=== PATIENT | male | born 1940 | race Asian ===

== ENCOUNTER 2022-01-09 19:15 | Inpatient (IN) | payer MEDICAID ==
[~2022-01-09] VITALS: Ht 152.4 cm; Wt 66.7 kg
--- NOTE | 2022-01-09 19:35 | NUR ---
[place] SPECIALIST NOTES: PT DIRECT ADMIT FROM [facility] VIA GURNEY, PLACED IN ROOM 108 BED1. PT AWAKE, ALERT/ORIENTED X4 AND VERBALLY RESPONSIVE. BREATHING EVEN AND UNLABORED. ON ROOM AIR AND PT TOLERATED WELL. O2 SAT 97%. IV ACCESS ON RAC #22G INTACT AND PATENT. NO S/S OF INFILTRATIONS. BODY ASSESSMENT DONE. NO OPEN SKIN OR SKIN DISCOLORATIONS. NO C/O PAIN OR DISCOMFORT. NO ACUTE DISTRESS. ABLE TO USE BATHROOM WITH ASSIST. COOPERATIVE. ALL SAFETY MEASURES IN PLACE. SIDE RAILS UP X2, BED IN LOWEST POSITION AND LOCKED. PLACE CALL LIGHT WITH IN REACH. WILL CONTINUE TO MONITOR
[2022-01-09 20:00] VITALS: BP 156/90
[2022-01-09] MEDS ORDERED: MAG HYDROX/AL HYDROX/SIMETH 30 ML UDC PO PRN (20:30)
[2022-01-09] MEDS ORDERED: ZOLPIDEM TARTRATE 5 MG TABLET PO PRN (20:30)
[2022-01-09] MEDS ORDERED: MAGNESIUM HYDROXIDE 30 ML UDC PO PRN (20:30)
[2022-01-09] MEDS ORDERED: ACETAMINOPHEN 325 MG TABLET PO PRN (20:30)
[2022-01-09] MEDS ORDERED: MORPHINE SULFATE INJ 2 MG/ML DISP.SYRIN IV PRN (20:30)
[2022-01-09] MEDS ORDERED: ONDANSETRON HCL/PF 4 MG/2 ML VIAL IVP PRN (20:30)
[2022-01-09] MEDS ORDERED: Z GUARD REMEDY 4 OZ OINT TP PRN (20:30)
[2022-01-09] MEDS ORDERED: WARF3TAB59 PO ×2 (21:07)
[2022-01-09] MEDS ORDERED: METO50TA16 PO (21:07)
[2022-01-09] MEDS ORDERED: SIMV-46 PO (21:07)
[2022-01-09] MEDS ORDERED: ACET-73 PO (21:14)
[2022-01-09] MEDS ORDERED: FINA5TAB3 PO (21:14)
[2022-01-09] MEDS ORDERED: AMLO-212 PO (21:14)
[2022-01-09] MEDS ORDERED: TERA2CAP4 PO (21:14)
[2022-01-09] MEDS: IV NS 0.9% 1,000 ML IV PRN (22:59)
[2022-01-09] MEDS ORDERED: ACETAMINOPHEN ES 500 MG TABLET PO PRN (23:00)
[2022-01-10] VITALS: BP 116/66
[2022-01-10] MEDS ORDERED: PIPERACILLIN /TAZOBACTAM 3.375 G VIAL IV ONE (01:59)
[2022-01-10] MEDS ORDERED: INSULIN REGULAR, HUMAN 100 UNIT/ML 3 ML VIAL SQ PRN (02:00)
[2022-01-10] MEDS ORDERED: DEXTROSE 50%-WATER 50 ML DISP.SYRIN IV PRN (02:00)
[2022-01-10] MEDS: PIPERACILLIN /TAZOBACTAM 3.375 G in IV D5W 50 ML IV SCH ×2 (02:11→08:15)
[2022-01-10 04:00] VITALS: BP 126/79
[2022-01-10] MEDS ORDERED: PIPERACILLIN /TAZOBACTAM 3.375 G in IV D5W 50 ML IV SCH (06:00)
--- NOTE | 2022-01-10 06:22 | NUR ---
RN CLOSING NOTES: PT IN BED SLEEPING BUT EASILY AROUSABLE, AWAKE, ALERT/ORIENTED X4 AND VERBALLY RESPONSIVE. BREATHING EVEN AND UNLABORED. ON ROOM AIR AND PT TOLERATED WELL. O2 SAT 98%. IV ACCESS ON RAC #22G INTACT AND PATENT. NO S/S OF INFILTRATIONS. NO C/O PAIN OR DISCOMFORT. NO ACUTE DISTRESS. ABLE TO USE BATHROOM WITH ASSIST. ABLE TO MAKE NEEDS. DUE MED GIVEN ORDERED. ALL SAFETY MEASURES IN PLACE. SIDE RAILS UP X2, BED IN LOWEST POSITION AND LOCKED. PLACE CALL LIGHT WITH IN REACH. WILL ENDORSE TO MORNING SHIFT NURSE.
[2022-01-10 06:41] LABS: BASOPHILS % (AUTO) 0.4 % (0.0-2.0); EOSINOPHILS % (AUTO) 1.5 % (0.0-6.0); HEMATOCRIT 42 % (39-51); HEMOGLOBIN 14.1 g/dL (13.5-17.5); LYMPHOCYTES # (AUTO) 1.2 K/uL (0.8-4.8); LYMPHOCYTES % (AUTO) 9.8 % (20.0-44.0); MEAN CORPUSCULAR HGB CONC 34 g/dl (31.0-36.0); MEAN CORPUSCULAR VOLUME 97 fL (80-96); MONOCYTES # (AUTO) 1.4 K/uL (0.1-1.30); MONOCYTES % (AUTO) 11.2 % (2.0-12.0); NEUTROPHILS # (AUTO) 9.6 K/uL (1.8-8.9); NEUTROPHILS % (AUTO) 77.1 % (43.0-81.0); PLATELET COUNT (AUTO) 138 K/uL (150-450); RED BLOOD CELL COUNT(AUTO) 4.33 MIL/uL (4.5-6.0); WHITE BLOOD COUNT (AUTO) 12.5 K/uL (4.3-11.0)
--- NOTE | 2022-01-10 07:15 | NUR ---
RN OPENING NOTE RECEIVED PT IN BED AWAKE, ALERT/ORIENTED X4 AND VERBALLY RESPONSIVE. BREATHING EVEN AND UNLABORED. ON ROOM AIR AND PT TOLERATED WELL. O2 SAT 98%. IV ACCESS ON RAC #22G INTACT AND PATENT. NO S/S OF INFILTRATIONS. NO C/O PAIN OR DISCOMFORT. NO ACUTE DISTRESS. ABLE TO MAKE NEEDS KNOWN. ABLE TO USE BATHROOM WITH ASSIST. ALL SAFETY MEASURES IN PLACE. SIDE RAILS UP X2, BED IN LOWEST POSITION AND LOCKED. PLACE CALL LIGHT WITH IN REACH. WILL CONTINUE TO MONITOR THROUGHOUT SHIFT
[2022-01-10] MEDS: BLOOD SUGAR DIAGNOSTIC 1 EACH STRIP IN SCH ×4 (07:34→22:04)
[2022-01-10 08:00] VITALS: BP 136/86
[2022-01-10 08:30] LABS: BILIRUBIN,TOTAL 2.1 mg/dL (0.2-1.0); CALCIUM, SERUM 8.1 mg/dL (8.5-10.1); CREATININE 1.1 mg/dL (0.6-1.3); MAGNESIUM 2.1 mg/dL (1.8-2.4); PHOSPHORUS 2.7 mg/dL (2.5-4.9); POTASSIUM 3.8 mmol/L (3.5-5.1); TOTAL PROTEIN, SERUM 6.6 g/dL (6.4-8.2)
[2022-01-10] MEDS: AMLODIPINE BESYLATE 5 MG TABLET PO SCH (09:51)
[2022-01-10] MEDS: METOPROLOL TARTRATE 50 MG TABLET PO SCH ×2 (09:51→16:15)
[2022-01-10] MEDS: PANTOPRAZOLE 40 MG VIAL IV SCH (09:51)
[2022-01-10] MEDS: TERAZOSIN HCL 5 MG CAPSULE PO SCH ×2 (09:52→21:35)
[2022-01-10] MEDS: IV NS 0.9% 1,000 ML IV PRN (10:16)
[2022-01-10 12:00] VITALS: BP 115/72
[2022-01-10] MEDS: PIPERACILLIN /TAZOBACTAM 3.375 G in IV D5W 100 ML IV SCH ×2 (12:55→21:40)
[2022-01-10 16:00] VITALS: BP 111/66
[2022-01-10] MEDS: WARFARIN SODIUM 1 MG TABLET PO SCH (16:24)
[2022-01-10] MEDS: SIMVASTATIN 20 MG TABLET PO SCH (17:04)
--- NOTE | 2022-01-10 19:02 | NUR ---
RN CLOSING NOTE PT REMAINS IN BED AWAKE, ALERT/ORIENTED X4 AND VERBALLY RESPONSIVE. BREATHING EVEN AND UNLABORED. ON ROOM AIR AND PT TOLERATED WELL WITH O2 SAT 99%. IV ACCESS ON RAC #22G INTACT AND PATENT. NO S/S OF INFILTRATIONS. NO C/O PAIN OR DISCOMFORT. NO ACUTE DISTRESS. ABLE TO MAKE NEEDS KNOWN. ABLE TO USE BATHROOM WITH ASSIST. ALL SAFETY MEASURES IN PLACE. SIDE RAILS UP X2, BED IN LOWEST POSITION AND LOCKED. PLACE CALL LIGHT WITH IN REACH. WILL ENDORSE CONTINUITY OF CARE TO PARENT COACH
[2022-01-10 20:00] VITALS: BP 110/63
--- NOTE | 2022-01-10 20:00 | NUR ---
CUT OFF TENDER GLASS OPENING NOTE RECEIVED PT IN BED AWAKE A/O X4 AMBULATORY AND VERBALLY RESPONSIVE.ON R/A SATING 98% ON TELE MONITOR HR 80- AFIB CONTROLLED BREATHING EVEN AND UNLABORED. V/S STABLE AFEBRILE . IV ACCESS ON RAC #22G INTACT AND PATENT. NO S/S OF INFILTRATIONS. IVF OF NS AT 90CC/HR INFUSING WELL .ALL DUE MEDS GIVEN ORDERED INCLUDING IV ATB NO ASE NOTED.. NO C/O PAIN OR DISCOMFORT. . ALL SAFETY MEASURES IN PLACE. SIDE RAILS UP X2, BED IN LOWEST POSITION AND LOCKED. PLACE CALL LIGHT WITH IN REACH. WILL CONTINUE TO MONITOR PTS.
[2022-01-10 20:33] LABS: CHOLESTEROL 121 mg/dL (<200); HDL CHOLESTEROL 57 mg/dL (40-60); LDL 60 mg/dL (0-99); TRIGLYCERIDES 77 mg/dL (30-150)
[2022-01-10] MEDS: FINASTERIDE (5 MG) 5 MG TABLET PO SCH (21:35)
--- NOTE | 2022-01-10 22:16 | NUR ---
telephone services sales representative notes Blood sugar at 10pm is 99mg/dl no insulin coverage given per sliding scale
[2022-01-11] VITALS: BP 118/72
[2022-01-11] MEDS: IV NS 0.9% 1,000 ML IV PRN ×2 (01:54→12:16)
[2022-01-11 04:00] VITALS: BP 119/81
[2022-01-11] MEDS: PIPERACILLIN /TAZOBACTAM 3.375 G in IV D5W 100 ML IV SCH ×3 (04:01→20:56)
--- NOTE | 2022-01-11 05:37 | NUR ---
telecommunications sales representative closing note Pts remain in bed awake continue on ivf ns at 90cc/hr infusing well no sob no distress noted due meds zosyn given with no adverse side effect noted , will endorse pts to day shift rn for continuity of care.
--- NOTE | 2022-01-11 07:20 | NUR ---
LAB AID OPENING NOTE RECEIVED PT IN BED AWAKE A/O X4 AMBULATORY AND VERBALLY RESPONSIVE.ON R/A SATING 97% ON TELE MONITOR WITH CONTROLLED A FIB HR OF 95. BREATHING EVEN AND UNLABORED. V/S STABLE AFEBRILE . IV ACCESS ON RAC #22G INTACT AND PATENT. NO S/S OF INFILTRATIONS. IVF OF NS AT 90CC/HR. NO C/O PAIN OR DISCOMFORT AT THIS TIME. ALL SAFETY MEASURES IN PLACE. SIDE RAILS UP X2, BED IN LOWEST POSITION AND LOCKED. CALL LIGHT WITH IN REACH. WILL CONTINUE TO MONITOR PT THROUGHOUT SHIFT.
[2022-01-11] MEDS: BLOOD SUGAR DIAGNOSTIC 1 EACH STRIP IN SCH ×4 (07:55→21:23)
[2022-01-11 08:00] VITALS: BP 145/90
[2022-01-11] MEDS: TERAZOSIN HCL 5 MG CAPSULE PO SCH ×2 (09:23→21:00)
[2022-01-11] MEDS: AMLODIPINE BESYLATE 5 MG TABLET PO SCH (09:24)
[2022-01-11] MEDS: METOPROLOL TARTRATE 50 MG TABLET PO SCH ×2 (09:24→17:16)
[2022-01-11] MEDS: PANTOPRAZOLE 40 MG VIAL IV SCH (09:24)
[2022-01-11 12:00] VITALS: BP 125/70
[2022-01-11 16:00] VITALS: BP 133/86
[2022-01-11] MEDS: SIMVASTATIN 20 MG TABLET PO SCH (17:17)
[2022-01-11] MEDS: WARFARIN SODIUM 1 MG TABLET PO SCH (17:40)
[2022-01-11 20:00] VITALS: BP 107/72
--- NOTE | 2022-01-11 20:00 | NUR ---
MINE PATROL OPENING NOTE RECEIVED PT IN BED AWAKE A/O X4 AMBULATORY AND VERBALLY RESPONSIVE.ON R/A SATING 98% ON TELE MONITOR HR 74- AFIB CONTROLLED BREATHING EVEN AND UNLABORED. V/S STABLE AFEBRILE . IV ACCESS ON RAC #22G INTACT AND PATENT. NO S/S OF INFILTRATIONS. IVF OF NS AT 90CC/HR INFUSING WELL .ALL DUE MEDS GIVEN ORDERED INCLUDING IV ATB NO ASE NOTED.. NO C/O PAIN OR DISCOMFORT. . ALL SAFETY MEASURES IN PLACE. SIDE RAILS UP X2, BED IN LOWEST POSITION AND LOCKED. PLACE CALL LIGHT WITH IN REACH. WILL CONTINUE TO MONITOR PTS.
--- NOTE | 2022-01-11 20:12 | NUR ---
RN CLOSING OPENING NOTE PT IN BED AWAKE A/O X4 AMBULATORY AND VERBALLY RESPONSIVE.ON R/A SATING 98% ON TELE MONITOR WITH CONTROLLED A FIB HR OF 84. BREATHING EVEN AND UNLABORED. V/S STABLE AFEBRILE . IV ACCESS ON RAC #22G INTACT AND PATENT. NO S/S OF INFILTRATIONS. IVF OF NS AT 90CC/HR. NO C/O PAIN OR DISCOMFORT AT THIS TIME. ALL SAFETY MEASURES IN PLACE. SIDE RAILS UP X2, BED IN LOWEST POSITION AND LOCKED. CALL LIGHT WITH IN REACH. WILL ENDORSE CONTINUITY OF CARE TO PRODUCT SAFETY LEAD
[2022-01-11] MEDS: FINASTERIDE (5 MG) 5 MG TABLET PO SCH (21:00)
--- NOTE | 2022-01-11 21:25 | NUR ---
television producer notes blood sugar at 10pm is 115mg/dlno insulin coverage given per sliding scale
[2022-01-12] VITALS: BP 116/60
[2022-01-12] MEDS: IV NS 0.9% 1,000 ML IV PRN (02:30)
[2022-01-12 04:00] VITALS: BP 110/70
[2022-01-12] MEDS: PIPERACILLIN /TAZOBACTAM 3.375 G in IV D5W 100 ML IV SCH (04:05)
--- NOTE | 2022-01-12 06:32 | NUR ---
television production technician closing note Pts remain in bed awake continue on ivf ns at 90cc/hr infusing well no sob no distress noted due meds zosyn given with no adverse side effect noted , will endorse pts to day shift rn for continuity of care.
[2022-01-12 07:12] LABS: BASOPHILS % (AUTO) 0.5 % (0.0-2.0); EOSINOPHILS % (AUTO) 7.3 % (0.0-6.0); HEMATOCRIT 42 % (39-51); HEMOGLOBIN 13.8 g/dL (13.5-17.5); LYMPHOCYTES % (AUTO) 14.7 % (20.0-44.0); MEAN CORPUSCULAR HGB CONC 33 g/dl (31.0-36.0); MEAN CORPUSCULAR VOLUME 97 fL (80-96); MONOCYTES # (AUTO) 0.7 K/uL (0.1-1.30); MONOCYTES % (AUTO) 9.9 % (2.0-12.0); NEUTROPHILS # (AUTO) 4.7 K/uL (1.8-8.9); NEUTROPHILS % (AUTO) 67.6 % (43.0-81.0); PLATELET COUNT (AUTO) 155 K/uL (150-450); WHITE BLOOD COUNT (AUTO) 6.9 K/uL (4.3-11.0)
--- NOTE | 2022-01-12 08:00 | NUR ---
DAUGHTER BECKY CALLED WANTED TO KNOW IF SHE CAN COME PICKUP HER DAD,CLARIFIED WITH FABIO CALDERÓN PT NO COMPLAIN OF PAIN POST BREAKFAST,VSS,PER TRUPTI TO GO HOME WITHOUT PRESCRIPTION.
[2022-01-12] MEDS: BLOOD SUGAR DIAGNOSTIC 1 EACH STRIP IN SCH (08:05)
[2022-01-12] MEDS ORDERED: PANTOPRAZOLE 40 MG/PACK PACK PO SCH (09:00)
[2022-01-12 09:41] VITALS: BP 115/75
--- NOTE | 2022-01-12 10:02 | NUR ---
PATIENT DISCHARGE AMBULATORY ACCOMPANIED BY DAUGHTER.
[2022-01-12 10:44] LABS: ALANINE AMINOTRANSFERASE 27 U/L (12-78); ALBUMIN 3.2 g/dL (3.4-5.0); ALKALINE PHOSPHATASE 53 U/L (46-116); ASPARTATE AMINOTRANSFERASE 30 U/L (15-37); BILIRUBIN,TOTAL 0.9 mg/dL (0.2-1.0); CALCIUM, SERUM 8.6 mg/dL (8.5-10.1); CARBON DIOXIDE 29 mmol/L (21-32); CHLORIDE 106 mmol/L (98-107); CREATININE 1.3 mg/dL (0.6-1.3); GLUCOSE 103 mg/dL (74-106); LIPASE 313 U/L (73-393); MAGNESIUM 2.2 mg/dL (1.8-2.4); PHOSPHORUS 2.8 mg/dL (2.5-4.9); POTASSIUM 3.5 mmol/L (3.5-5.1); SODIUM SERUM 142 mmol/L (136-145); TOTAL PROTEIN, SERUM 6.9 g/dL (6.4-8.2); UREA NITROGEN, BLOOD 9 mg/dL (7-18)
== END 2022-01-12 10:11 | disposition home or self-care (01) | DRG 282 ==
LOC: TELE1 19:15
PROVIDERS: ADMIT Nurse Practitioner Acute Care; ATTEND Internal Medicine
DX: K85.90 Acute pancreatitis without necrosis or infection, unspecified (principal); D68.59 Other primary thrombophilia; R65.10 Systemic inflammatory response syndrome (SIRS) of non-infectious origin without acute organ dysfunction; J15.9 Unspecified bacterial pneumonia; I48.20 Chronic atrial fibrillation, unspecified; E11.9 Type 2 diabetes mellitus without complications; E78.5 Hyperlipidemia, unspecified; Z79.01 Long term (current) use of anticoagulants; I10 Essential (primary) hypertension; E78.1 Pure hyperglyceridemia; N40.0 Benign prostatic hyperplasia without lower urinary tract symptoms; Z79.899 Other long term (current) drug therapy
CPT/HCPCS: 36415; 71045-TC; 76705-TC; 80053-TC; 80061-TC; 82962-TC; 83690-TC; 83735-TC; 84100-TC; 85025-TC; 85610-TC; C9113; G0378; J1815; J2543; J7030; J7050; J7060